=== PATIENT | female | born 1995 | race African-American/Black ===

== ENCOUNTER 2017-04-27 14:18 | Outpatient (CLI) | payer OTHER ==
--- NOTE | 2017-04-27 21:41 | XRay Report ---
FINAL REPORT PROCEDURE: XR ELBOW 2V RT TECHNIQUE: RIGHT elbow radiographs, including AP, lateral, and oblique views. CPT 45784 HISTORY: PAIN IN RIGHT ARM COMPARISON: No prior studies are available for comparison. FINDINGS: Fracture (s) and/or Dislocation(s): None . Alignment: Normal . Joint space(s): Normal . Soft tissues: Normal . Bone mineralization: Normal . Foreign bodies: None . IMPRESSION: Normal Examination
--- NOTE | 2017-04-27 21:41 | XRay Report ---
FINAL REPORT PROCEDURE: XR FOREARM RT TECHNIQUE: RIGHT foot radiographs, AP, lateral, and oblique views. CPT 95757 HISTORY: PAIN IN RIGHT ARM COMPARISON: No prior studies are available for comparison. FINDINGS: Fracture (s) and/or Dislocation(s): None . Alignment: Normal . Joint space(s): Normal . Soft tissues: Normal . Bone mineralization: Normal . Foreign bodies: None . Calcaneal spurring: None . IMPRESSION: Normal Examination .
--- NOTE | 2017-04-27 21:42 | XRay Report ---
FINAL REPORT PROCEDURE: XR SPINE LUMBOSACRAL 2-3V TECHNIQUE: Lumbar spine radiographs, including AP, lateral, and lumbosacral spot views. CPT 74864 HISTORY: BACKACHE COMPARISON: No prior studies are available for comparison. FINDINGS: Alignment: Normal. Vertebral body heights/Disk spaces: Normal. Fracture(s): None. Facets: Normal. Bone mineralization: Normal. IMPRESSION: Normal Examination.
--- NOTE | 2017-04-27 21:44 | XRay Report ---
FINAL REPORT PROCEDURE: XR SPINE THORACIC 2V TECHNIQUE: Thoracic spine radiographs including AP, lateral, and Swimmer's views. CPT [id number] HISTORY: BACKACHE COMPARISON: No prior studies are available for comparison. FINDINGS: Alignment: Normal . Vertebral body height: Normal . Disk spaces: Normal . Fracture(s): None . Bone mineralization: Normal . IMPRESSION: Normal Examination.
== END 2017-04-27 14:19 | disposition home or self-care (01) ==
LOC: XRAY 14:18
PROVIDERS: ATTEND Family Medicine
DX: M54.6 Pain in thoracic spine (principal); M79.601 Pain in right arm; M54.5 Low back pain
CPT/HCPCS: 72070; 72100